=== PATIENT | female | born 1990 | race Two or more races ===

== ENCOUNTER 2023-04-06 09:02 | Outpatient (CLI) | payer OTHER | END 2023-04-06 09:25 | disposition home or self-care (01) | LOC: RX STUDY 09:02 | DX: N91.2 Amenorrhea, unspecified (principal); N93.9 Abnormal uterine and vaginal bleeding, unspecified; N97.1 Female infertility of tubal origin; E28.2 Polycystic ovarian syndrome; Q50.6 Other congenital malformations of fallopian tube and broad ligament ==